=== PATIENT | female | born 1990 | race American Indian/Alaskan Native ===

== ENCOUNTER 2021-05-14 16:42 | Emergency (ER) | payer OTHER ==
[2021-05-14 17:44] VITALS: BP 120/79
[2021-05-14] MEDS ORDERED: IBUPROFEN 600 MG TAB PO ONE (19:48)
[2021-05-14] MEDS ORDERED: ACETAMINOPHEN 500 MG TAB PO ONE (19:48)
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
== END 2021-05-15 03:27 | disposition home or self-care (01) ==
LOC: ED 16:42
DX: S29.011A Strain of muscle and tendon of front wall of thorax, initial encounter (principal); S20.211A Contusion of right front wall of thorax, initial encounter; Z79.899 Other long term (current) drug therapy; V49.49XA Driver injured in collision with other motor vehicles in traffic accident, initial encounter; Y92.410 Unspecified street and highway as the place of occurrence of the external cause; Y93.89 Activity, other specified; Y99.8 Other external cause status